=== PATIENT | female | born 1985 | race Caucasian/White ===

== ENCOUNTER 2017-05-24 19:24 | Emergency (ER) | payer OTHER, SELFPAY ==
[2017-05-24 19:25] VITALS: BP 161/88; PULSE 84; RESP 16; TEMP 37; O2SAT 100; BMI 28.9
--- NOTE | 2017-05-24 19:37 | XR_ITS ---
XR chest 2V HISTORY: Chest pain ITS.REASON: CP ORDERING PHYSICIAN: Tony Dowell MD PATIENT AGE: 31 years COMPARISON: None available FINDINGS: The cardiomediastinal silhouette and pulmonary vascularity are within normal limits. No lobar consolidation or collapse. On the lateral view there is a 2 x 1 cm oval opacity overlying the posterior aspect of the heart. This is inferior to the hilum.. There is a 10 mm opacity overlying the left lower lung zone and may be related to nipple shadow No acute bony abnormalities. IMPRESSION: 2 x 1 cm infrahilar opacity seen on the lateral view. Differential diagnosis would include pulmonary nodule or an area of dense consolidation. Follow-up radiograph recommended. If this persists then CT may be needed for further characterization. Otherwise negative chest
[2017-05-24 19:53] LABS: Microscopic, Urine URINE MICROSCOPIC (MICROSCOPIC)
[2017-05-24 19:56] LABS: Appearance,Urine CLEAR (Clear); Basophils # 0.1 K/mm3 (0-0.2); Basophils % 0.6 % (0.1-2.0); Bilirubin,Urine Negative (Negative); Blood, Urine Negative (Negative); Color,Urine YELLOW (Yellow); Eosinophils # 0.1 K/mm3 (0.0-0.4); Eosinophils % 1.2 % (0.1-12.0); Glucose,Urine (UA) Negative (Negative); Hematocrit 40.3 % (37.0-47.0); Hemoglobin 13.8 g/dL (12.2-16.2); Ketones,Urine Negative (Negative); Leukocyte Esterase,Urine Negative (Negative); Lymphocytes # 2.7 K/mm3 (0.7-4.5); Lymphocytes % 32.9 K/mm3 (10-50); Mean Corpuscular HGB Conc 34.2 g/dL (31.8-35.4); Mean Corpuscular Hemoglobin 30.6 pg (27.0-31.2); Mean Corpuscular Volume 89.6 fl (81-99); Mean Platelet Volume 8.1 fl (7.4-10.4); Monocytes # 0.5 K/mm3 (0.1-1.0); Monocytes % 5.6 % (1.7-9.3); Neutrophils # 4.9 K/mm3 (1.8-7.8); Neutrophils % 59.7 % (37.0-80.0); Nitrate,Urine Negative (Negative); Platelet Count 240 K/mm3 (142-424); Protein,Urine Negative (Negative); Specific Gravity, Urine 1.025 (1.005-1.030); Urobilinogen,Urine 0.2 EU/dl (0.2); White Blood Count 8.2 K/mm3 (4.8-10.8)
[2017-05-24 19:58] LABS: Urine Pregnancy, HCG Qual. Negative (Negative)
[2017-05-24 20:06] LABS: Bacteria,Urine Trace /lpf; Mucus,Urine 3+ /lpf; RBC,Urine Occasional #/hpf (0-3); WBC,Urine Occasional #/hpf (0-3)
--- NOTE | 2017-05-24 20:37 | PC.NURSE ---
PT TO XRAY AT THIS TIME
[2017-05-24 20:49] LABS: Alanine Aminotransferase 31 U/L (12-78); Albumin Level 4.1 gm/dL (3.4-5.0); Albumin/Globulin Ratio 1.1 (1.1-1.8); Alkaline Phosphatase 91 U/L (46-116); Anion Gap 7.6 mEq/L (5-15); Aspartate Amino Transferase 16 U/L (15-37); Bilirubin,Total 0.2 mg/dL (0.2-1.0); Blood Urea Nitrogen 11 mg/dL (7-18); CKMB Relative Index 0.2 U/L (0-4.0); Calcium 8.8 mg/dL (8.5-10.1); Carbon Dioxide 29 mmol/L (21.0-32.0); Chloride 106 mmol/L (98-107); Creatine Kinase 222 U/L (26-192); Creatine Kinase MB < 0.5 mg/ml (0.0-3.6); Creatinine Clearance Estimated 123 mL/min (0-300); Creatinine,Serum 0.83 mg/dL (0.55-1.02); Estimated Glomerular Filt Rate 81 ml/min (>60); GFR (African American) 98 ML/MIN (>60); Globulin 3.7 gm/dl (1.3-3.2); Glucose 70 mg/dL (74-106); Potassium 3.6 mmoL/L (3.5-5.1); Sodium 139 mmol/L (136-145); Total Protein,Serum 7.8 gm/dL (6.4-8.2); Troponin I < 0.02 ng/ml (0.00-0.06)
--- NOTE | 2017-05-24 20:54 | [facility].EDCP ---
ED Disposition Clinical Impression: Atypical chest pain Disposition: Home, Self-Care Condition on Discharge: Good Instructions: DI for Atypical Chest Pain Additional Instructions: use meds and see pcp for follow up Prescriptions: Azithromycin [Zithromax 250mg tab] 250 mg PO DIRECTED #6 tab predniSONE [Prednisone 20mg Tab] 20 mg PO DAILY #10 tab - Critical Care Critical Care Time: No Attestation: On 05/24/17, the high probability of a clinically significant, sudden or life threatening deterioration of the following system(s) required my full and direct attention, intervention and personal management. The time I documented below is in addition to time spent performing reported procedures but includes the following listed in this critical care notation. Medical Decision Making - Medical Records Medical records reviewed: Yes: I reviewed the patient's medical records. Vital Signs: 05/24/17 19:25 Temperature 98.6 F Temperature Source Oral Pulse Rate [Right] 84 Respiratory Rate 16 Blood Pressure [Right Arm] 161/88 Blood Pressure Mean [Right Arm] 112 Blood Pressure Position [Right Arm] Sitting 02 Sat by Pulse Oximetry 100 Oxygen Delivery Method Room Air - Lab Data Lab results reviewed: Yes: I reviewed the patient's lab results. Lab Results 05/24/17 19:41: Urine Color Yellow, Urine Appearance Clear, Urine pH 6.0, Ur Specific [place] 1.025, Urine Protein Negative, Urine Glucose (UA) Negative, Urine Ketones Negative, Urine Blood Negative, Urine Nitrate Negative, Urine Bilirubin Negative, Urine Urobilinogen 0.2, Ur Leukocyte Esterase Negative, Urine RBC Occasional, Urine WBC Occasional, Ur Squamous Epith Cells 3-5, Urine Bacteria Trace, Urine Mucus 3+ 05/24/17 19:41: WBC 8.2, RBC 4.50, Hgb 13.8, Hct 40.3, MCV 89.6, MCH 30.6, MCHC 34.2, RDW 12.0, Plt Count 240, MPV 8.1, Neut % (Auto) 59.7, Lymph % (Auto) 32.9, [place] % (Auto) 5.6, Eos % (Auto) 1.2, Baso % (Auto) 0.6, Neut # (Auto) 4.9, Lymph # (Auto) 2.7, [place] # (Auto) 0.5, Eos # (Auto) 0.1, Baso # (Auto) 0.1 05/24/17 19:41: Urine HCG, Qual Negative 05/24/17 19:41: Sodium 139, Potassium 3.6, Chloride 106, Carbon Dioxide 29, Anion Gap 7.6, BUN 11, Creatinine 0.83, Estimated Creat Clear 123, Estimated GFR 81, Est GFR ( Amer) 98, Glucose 70 L, Calcium 8.8, Total Bilirubin 0.2, AST 16, ALT 31, Alkaline Phosphatase 91, Total Creatine Kinase 222 H, CK-MB (CK-2) < 0.5, CK-MB (CK-2) Rel Index 0.2, Troponin I < 0.02, Total Protein 7.8, Albumin 4.1, Globulin 3.7 H, Albumin/Globulin Ratio 1.1 Result diagrams: 05/24/17 19:41 05/24/17 19:41 Orders (Tests/Meds): ORDERS Category Date Time Status XR chest 2V Stat Exams 05/24/17 19:37 Taken ECG Request by /Nse Stat Y 05/24/17 19:37 Ordered - Radiology Data #1 Image(s): Chest Image Reviewed: Yes I reviewed the patient's radiology image Preliminary Findings: Normal/NAD - ECG Data Tracing #1 I reviewed this ECG and interpreted as documented below: Normal Sinus Rhythm: Yes Ischemic changes: non-specific ST-T wave changes - Harsh Inquiry Pt receiving controlled substance: No Chest Pain HPI - General Chief Complaint: Chest Pain Stated Complaint: CP Time Seen by Provider: 05/24/17 20:54 Mode of Arrival: Ambulatory Limitations: No Limitations Description of Symptoms (Recalled from ER Triage Doc. 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
[2017-05-24 21:33] VITALS: BP 125/65; PULSE 75; RESP 16; TEMP 37; O2SAT 100
--- NOTE | 2017-05-26 15:49 | PC.NURSE ---
Attempted to contact pt about radiology report. No answer at this time and voicemail left.
== END 2017-05-24 21:35 | disposition home or self-care (01) ==
PROVIDERS: Emergency Provider Emergency Medicine
DX: R07.9 Chest pain, unspecified (principal)
CPT/HCPCS: 71046; 80053; 81001; 81025; 82550; 82553; 84484; 85025; 93005; 93041; 99282